=== PATIENT | male | born 1945 | race Caucasian/White ===

== ENCOUNTER 2021-04-26 19:22 | Inpatient (IN) | payer OTHER ==
[2021-04-26] MEDS ORDERED: morphine CARPU-JECT 4 MG/1 ML DISP.SYRIN IVPUSH ONE (22:25)
[2021-04-26] MEDS ORDERED: ONDANSETRON 4 MG/2 ML VIAL IVPUSH ONE (22:25)
[2021-04-26] MEDS ORDERED: morphine SULFATE 4 MG/ML VIAL ONE (22:29)
[2021-04-26] MEDS ORDERED: ONDANSETRON 4 MG/2 ML VIAL ONE (22:29)
[2021-04-26 22:38] LABS: EPI CELLS 1 /uL (0-25.1); HYALINE CASTS 1 /uL (0-3.1); URINE APPEARANCE Error; URINE BACTERIA 3 /uL (0-1359); URINE BILIRUBIN NEGATIVE (NEGATIVE); URINE COLOR YELLOW; URINE GLUCOSE (UA) 3+ (NEGATIVE); URINE KETONE 1+ (NEGATIVE); URINE LEUK ESTERASE NEGATIVE (NEGATIVE); URINE NITRITE NEGATIVE (NEGATIVE); URINE PROTEIN TRACE (NEGATIVE); URINE RBC 28 /uL (0-23.9); URINE UROBILINOGEN 0.2 mg/dL (0.2-1.0); URINE WBC 2 /uL (0-25.8)
[2021-04-26 22:48] LABS: BASO % 0.4 % (0-2.0); EOS % 0.1 % (0-4.5); HEMATOCRIT 53.2 % (35.4-49); HEMOGLOBIN 17.9 GM/dL (11.7-16.9); LYMPH % 6.1 % (8-40); MCH 30.3 pg (25.7-33.7); MCHC 33.8 g/dl (32.0-35.9); MEAN CELL VOLUME 89.9 fl (80-96); MEAN PLT VOLUME 7.8 fl (7.5-11.1); MONO % 5.9 % (3.8-10.2); NEUT % 87.5 % (42.8-82.8); PLATELET COUNT 204 10^3/uL (134-434); RBC 5.92 M/mm3 (4.00-5.60); RDW 14.7 % (11.9-15.9); WHITE BLOOD COUNT 15.3 K/mm3 (4.0-10.0)
[2021-04-26] MEDS ORDERED: SODIUM CHLORIDE 0.9% 500 ML INFUS.BAG IV ONE (23:03)
[2021-04-26 23:18] LABS: ALBUMIN 3.9 g/dl (3.4-5.0); BLOOD UREA NITROGEN 23.4 mg/dL (7-18); CALCIUM 9.5 mg/dL (8.5-10.1)
[2021-04-26 23:21] LABS: CREATININE 1.4 mg/dL (0.55-1.3)
[2021-04-26 23:23] LABS: BILIRUBIN,TOTAL 0.6 mg/dL (0.2-1); TOT PROT 7.5 g/dl (6.4-8.2)
[2021-04-27 01:48] LABS: INR 1.03 (0.83-1.09)
[2021-04-27 01:50] LABS: ACTIVATED PTT 30.7 SECONDS (25.2-36.5)
[2021-04-27] MEDS ORDERED: morphine CARPU-JECT 4 MG/1 ML DISP.SYRIN IVPUSH ONE (02:23)
[2021-04-27] MEDS ORDERED: ONDANSETRON 4 MG/2 ML VIAL IVPUSH ONE (02:23)
[2021-04-27] MEDS ORDERED: ONDANSETRON 4 MG/2 ML VIAL ONE (02:33)
[2021-04-27] MEDS ORDERED: morphine SULFATE 4 MG/ML VIAL ONE (02:33)
[2021-04-27] MEDS ORDERED: morphine SULFATE 4 MG/ML VIAL IVPUSH PRN (03:52)
[2021-04-27] MEDS ORDERED: ONDANSETRON 4 MG/2 ML VIAL IVPUSH PRN (03:57)
[2021-04-27] MEDS ORDERED: ACETAMINOPHEN 1000 MG/100 ML BAG IVPB PRN (03:59)
[2021-04-27] MEDS: SODIUM CHLORIDE 1,000 ML IV SCH (05:00)
[2021-04-27 08:31] LABS: BASO % 0.5 % (0-2.0); EOS % 0.2 % (0-4.5); HEMOGLOBIN 16.7 GM/dL (11.7-16.9); LYMPH % 7.4 % (8-40); MCH 30.6 pg (25.7-33.7); MCHC 33.5 g/dl (32.0-35.9); MEAN CELL VOLUME 91.6 fl (80-96); MEAN PLT VOLUME 7.9 fl (7.5-11.1); MONO % 8.4 % (3.8-10.2); NEUT % 83.5 % (42.8-82.8); PLATELET COUNT 185 10^3/uL (134-434); RBC 5.46 M/mm3 (4.00-5.60); RDW 14.7 % (11.9-15.9); WHITE BLOOD COUNT 13.3 K/mm3 (4.0-10.0)
[2021-04-27 08:50] LABS: CALCIUM 8.4 mg/dL (8.5-10.1)
[2021-04-27 08:51] LABS: MAGNESIUM 2.3 mg/dL (1.8-2.4)
[2021-04-27 08:53] LABS: ALBUMIN 3.7 g/dl (3.4-5.0); BLOOD UREA NITROGEN 22.6 mg/dL (7-18)
[2021-04-27 08:54] LABS: CREATININE 1.6 mg/dL (0.55-1.3)
[2021-04-27 08:56] LABS: TOT PROT 6.8 g/dl (6.4-8.2)
[2021-04-27 08:57] LABS: BILIRUBIN,TOTAL 0.8 mg/dL (0.2-1)
[2021-04-27] MEDS ORDERED: TAMSULOSIN HCL 0.4 MG CAP ONE (09:13)
[2021-04-27] MEDS: INSULIN SLIDING SCALE (NOVOLOG) 1 VIAL SQ SCH ×4 (09:17→22:21)
[2021-04-27] MEDS: TAMSULOSIN HCL 0.4 MG CAP PO SCH (09:17)
[2021-04-27] MEDS ORDERED: CEFTRIAXONE 1 GM/50 ML BAG ONE (10:22)
[2021-04-27] MEDS: CEFTRIAXONE 1 GM in DEXTROSE 5%-WATER - 50 ML IVPB SCH (10:23)
[2021-04-27 19:45] VITALS: BMI 39.4
[2021-04-28] MEDS ORDERED: MELATONIN 5 MG TABLETS PO ONE (00:50)
[2021-04-28] MEDS: SODIUM CHLORIDE 1,000 ML IV SCH (06:10)
[2021-04-28] MEDS: INSULIN SLIDING SCALE (NOVOLOG) 1 VIAL SQ SCH ×3 (06:10→18:07)
[2021-04-28] MEDS ORDERED: cefTRIAXone SODIUM 1 GM VIAL ONE (09:09)
[2021-04-28] MEDS ORDERED: DEXTROSE 5%-WATER - 50 ML IVPB ONE (09:09)
[2021-04-28] MEDS ORDERED: ONDANSETRON 4 MG/2 ML VIAL IVPUSH PRN ×3 (09:24→10:51)
[2021-04-28] MEDS ORDERED: PROMETHAZINE HCL 25 MG/1 ML VIAL IVPB PRN ×2 (09:24→10:51)
[2021-04-28] MEDS ORDERED: PROPOFOL 20 ML ONE ×2 (09:27)
[2021-04-28] MEDS ORDERED: MIDAZOLAM HCL 2 MG/2 ML SINGLE DOSE VIAL ONE (09:28)
[2021-04-28] MEDS ORDERED: LACTATED RINGERS SOLUTION 1,000 ML IV SCH ×2 (09:30→10:49)
[2021-04-28] MEDS ORDERED: LIDOCAINE HCL 2% JELLY 10 ML CARTRIDGE ONE (10:03)
[2021-04-28] MEDS ORDERED: IOHEXOL 300 MG/ML INFUS..BTL IV ONE (10:07)
[2021-04-28] MEDS ORDERED: ACETAMINOPHEN 325 MG TABLET (FP) PO PRN (10:48)
[2021-04-28] MEDS ORDERED: oxyCODONE HCL 5 MG TABLET PO PRN (11:03)
[2021-04-28] MEDS: CEFTRIAXONE 1 GM in DEXTROSE 5%-WATER - 50 ML IVPB SCH (11:45)
[2021-04-28] MEDS: TAMSULOSIN HCL 0.4 MG CAP PO SCH (11:45)
[2021-04-28 11:49] VITALS: PULSE 82
[2021-04-28 12:40] VITALS: BP 156/84; TEMP 97.8
[2021-04-28] MEDS ORDERED: HYDROCORTISONE SOD SUCCINATE 100 MG/2 ML VIAL ONE (12:52)
[2021-04-29] MEDS ORDERED: TAMSULOSIN HCL 0.4 MG CAP PO SCH (08:30)
[2021-04-29] MEDS ORDERED: CEFTRIAXONE 1 GM in DEXTROSE 5%-WATER - 50 ML IVPB SCH (10:00)
== END 2021-04-28 16:59 | disposition home or self-care (01) | DRG 660 ==
LOC: JER 19:22 → JERBED 04-27 01:22 → J5S 04-27 16:29
PROVIDERS: ADMIT Internal Medicine
PROC: 0T778DZ Dilation of Left Ureter with Intraluminal Device, Via Natural or Artificial Opening Endoscopic (ICD-10-PCS; principal; 2021-04-28 11:00)
PROC: BT1FZZZ Fluoroscopy of Left Kidney, Ureter and Bladder (ICD-10-PCS; 2021-04-28 11:00)
DX: N13.2 Hydronephrosis with renal and ureteral calculous obstruction (principal); I50.32 Chronic diastolic (congestive) heart failure; N17.9 Acute kidney failure, unspecified; D72.829 Elevated white blood cell count, unspecified; N28.1 Cyst of kidney, acquired; E66.9 Obesity, unspecified; G47.33 Obstructive sleep apnea (adult) (pediatric); I10 Essential (primary) hypertension; E78.5 Hyperlipidemia, unspecified; Z68.39 Body mass index [BMI] 39.0-39.9, adult
CPT/HCPCS: 36415; 74176-TC; 76000-TC-FY; 80053; 80061; 81003; 82436; 82570; 82962; 83036; 83690; 83735; 84100; 84133; 84156; 84300; 85025; 85610; 85730; 86850; 86900; 86901; 87086; 93005; 93010; 94760; 99285-25; C9803; U0003; U0005